=== PATIENT | female | born 1960 | race Caucasian/White ===

== ENCOUNTER → 2020-05-02 15:25 | Outpatient (CLI) | payer BC, SELFPAY ==
[2020-05-02 16:02] LABS: COVID19 -Nasal RAPID Negative (Negative)
== END ==
PROVIDERS: Visit Provider Physician Assistant
DX: Z11.59 Encounter for screening for other viral diseases (principal)
CPT/HCPCS: 87635

== ENCOUNTER → 2020-06-23 10:54 | Outpatient (CLI) | payer BC, SELFPAY ==
[2020-06-23] MEDS: COVID-19 VACC #1, MRNA(MOD) 100 MCG/0.5 ML VIAL IM (10:59)
== END ==
PROVIDERS: Visit Provider Internal Medicine
DX: Z23 Encounter for immunization (principal)
CPT/HCPCS: 0011A; 91301

== ENCOUNTER 2020-06-27 11:04 | Emergency (ER) | payer BC, SELFPAY ==
[2020-06-27 11:22] VITALS: BP 138/73; PULSE 114; RESP 22; TEMP 37; O2SAT 99; BMI 26.3
--- NOTE | 2020-06-27 11:29 | DI.RAD.S_ITS ---
PROCEDURE: XR CHEST 1V INDICATIONS: chest pain TECHNIQUE: One view of the chest was acquired. COMPARISON: None. FINDINGS: Surgical changes and devices: None. Lungs and pleura: Lungs are clear. No pleural effusions or pneumothorax. Mediastinum: Mediastinal contours appear normal. Heart size is normal. Bones and chest wall: No suspicious bony lesions. Overlying soft tissues appear unremarkable. IMPRESSION: No acute disease. Dictated by: Justo Rodríguez M.D. on 06/27/2020 at 12:11 Approved by: Justo Rodríguez M.D. on 06/27/2020 at 12:12
--- NOTE | 2020-06-27 11:50 | ED_ITS ---
HPI - Abdominal Pain <DEVIKA Horn - Last Filed: 06/27/20 15:39> General Chief Complaint: Abdominal Pain Stated Complaint: abd pain Time Seen by Provider: 06/27/20 11:38 Source: patient Mode of arrival: Ambulatory Limitations: no limitations History of Present Illness HPI narrative: The patient is a 60-year-old female current everyday smoker with history of ovarian CA who presents with a chief complaint of epigastric pain for approximately 1.5 years. She states it got worse over this weekend, radiating up to her chest. She complains of nausea, using Zofran frequently at home. She has also tried ?the purple pill for acid reflex as well as a GI cocktail. She states that she has had some floating stools recently, and headache above her eyes which makes her concerned about her gallbladder. She states her nausea is becoming increasingly persistent. No vomiting. Denies any black tarry stools. Denies any dysuria urgency or frequency. She states that she was using lots of ibuprofen for her pain, related to a rotator cuff injury as well as a foot injury. Related Data Home Medications Medication Instructions Recorded Confirmed duloxetine 60 mg capsule,delayed 60 mg PO DAILY 05/02/20 05/02/20 release lorazepam 0.5 mg tablet 0.5 mg PO DAILY PRN 05/02/20 05/02/20 methadone PO 05/02/20 05/02/20 methadone 15 mg PO DAILY 06/27/20 06/27/20 Previous Rx's Medication Instructions Recorded sucralfate [Carafate] 10 ml PO QACHS #420 ml 06/27/20 Allergies Allergy/AdvReac Type Severity Reaction Status Date / Time Penicillins Allergy Intermediate Rash Verified 06/27/20 11:29 Sulfa (Sulfonamide Allergy Intermediate Rash Verified 06/27/20 11:29 Antibiotics) Review of Systems <DEVIKA Horn - Last Filed: 06/27/20 15:39> Review of Systems Narrative: GENERAL: Denies chills, fatigue, malaise, fever, sweats. HEENT: Denies sinus pain, ear pain, sore throat, difficulty swallowing, dizziness. RESPIRATORY: Denies dyspnea, cough, wheezing, hemoptysis, sputum. CARDIOVASCULAR: See HPI GASTROINTESTINAL: See HPI : Denies dysuria, frequency, incontinence, hematuria, urinary retention. MUSCULOSKELETAL: denies weakness, joint pain, or bony pain SKIN: Denies rash, skin lesions, or other NEUROLOGIC: Denies weakness, headache, numbness, change in speech, confusion, seizures, incoordination. PSYCHIATRIC: No concerning psychosocial issues. 12 point review of systems is negative except for those stated above Patient History <DEVIKA Horn - Last Filed: 06/27/20 15:39> Medical History (Updated 06/27/20 @ 15:35 by DEVIKA Horn) URI (upper respiratory infection) Social History Smoking Status: Current every day smoker Smoking Status: Current every day smoker alcohol intake frequency: 0-2 drinks per day Substance Use Type: does not use Exam <DEVIKA Horn - Last Filed: 06/27/20 15:39> Narrative Exam Narrative: GENERAL: This is a well-nourished, well-developed patient, in no acute distress lying on stretcher HEAD: Atraumatic. Normocephalic. No temporal or scalp tenderness. EYES: Pupils equal round and reactive. Extraocular motions intact. No scleral icterus. No injection or drainage. ENT: Nose without bleeding, purulent drainage or septal hematoma. Throat without erythema, tonsillar hypertrophy or exudate. Uvula midline. Airway patent. NECK: Trachea midline. No JVD or lymphadenopathy. Supple, nontender, no meningeal signs. CARDIOVASCULAR: Regular rate and rhythm RESPIRATORY: Clear to auscultation. Breath sounds equal bilaterally. No wheezes, rales, or rhonchi. GASTROINTESTINAL: Abdomen soft, diffusely tender right upper quadrant, diffusely tender epigastric area, nondistended. No hepato-splenomegaly, or palpable masses. No guarding. Active bowel sounds all 4 quadrants. Negative [place]herty sig n. EXTREMITIES: No clubbing, cyanosis, or edema. No joint tenderness, effusion, or edema noted. BACK: Nontender without deformity or crepitance. No flank tenderness. NEURO: AOx3. SKIN: No rash or erythema on visible skin Initial Vital Signs Initial Vital Signs: Vital Signs Temperature 98.6 F 06/27/20 11:22 Pulse Rate 114 H 06/27/20 11:22 Respiratory Rate 22 06/27/20 11:22 Blood Pressure 138/73 06/27/20 11:22 Pulse Oximetry 99 06/27/20 11:22 <Dennis Luong DO - Last Filed: 06/27/20 17:19> Initial Vital Signs Initial Vital Signs: Vital Signs Temperature 98.6 F 06/27/20 11:22 Pulse Rate 114 H 06/27/20 11:22 Respiratory Rate 22 06/27/20 11:22 Blood Pressure 138/73 06/27/20 11:22 Pulse Oximetry 99 06/27/20 11:22 Scores <DEVIKA Horn - Last Filed: 06/27/20 15:39> GCS Mitra coma scale eye opening: Spontaneous Mitra coma scale verbal response: Orientated Mitra coma scale motor response: Obey commands Mitra coma scale total score: 15 Course <DEVIKA Horn - Last Filed: 06/27/20 15:39> Orders Ordered: ED Orders 06/27/20 11:29 XR chest 1V Stat EKG-12 Lead Stat 06/27/20 12:21 Complete Blood Count AUTO DIFF Stat Comprehensive Metabolic Panel Stat Lactate (Lactic Acid) Stat Lipase Stat Magnesium Stat Partial Thromboplastin Time Stat Procalcitonin Stat Prothrombin Time INR Stat Troponin & CK Cardiac Panel Stat 06/27/20 12:59 CT chest abd pel w con Stat 06/27/20 13:15 Urinalysis and Microscopic Stat Discontinued Medications Sodium Chloride (Normal Saline 0.9%) 1,000 mls @ 1,000 mls/hr IV BOLUS ONE Stop: 06/27/20 13:19 Last Infusion: 06/27/20 13:23 Dose: 0 mls/hr Documented by: Admin: 06/27/20 12:30 Dose: 1,000 mls/hr Documented by: JASON Magnesium Citrate (Magnesium Citrate 300 Ml Solution) 300 ml PO NOW ONE Stop: 06/27/20 14:34 Last Admin: 06/27/20 14:42 Dose: 300 ml Documented by: JASON Ondansetron HCl (Ondansetron 4 Mg/2 Ml Inj) 4 mg IV NOW ONE Stop: 06/27/20 13:20 Last Admin: 06/27/20 13:22 Dose: 4 mg Documented by: TRUDY Sucralfate (Sucralfate 1 Gm/10 Ml Oral Susp) 1 gm PO NOW ONE Stop: 06/27/20 14:33 Last Admin: 06/27/20 14:42 Dose: 1 gm Documented by: JASON Vital Signs Vital signs: Vital Signs - 8 hr 06/27/20 11:22 06/27/20 12:00 06/27/20 12:30 Temperature 98.6 F Pulse Rate 114 H 76 74 Respiratory Rate 22 Blood Pressure 138/73 115/59 L 111/57 L Pulse Oximetry 99 98 97 06/27/20 13:28 06/27/20 13:30 06/27/20 14:00 Temperature Pulse Rate 74 68 59 L Respiratory Rate 20 Blood Pressure 115/61 114/61 108/61 Pulse Oximetry 98 98 96 <Dennis Luong, - Last Filed: 06/27/20 17:19> Orders Ordered: ED Orders 06/27/20 11:29 XR chest 1V Stat EKG-12 Lead Stat 06/27/20 12:21 Complete Blood Count AUTO DIFF Stat Comprehensive Metabolic Panel Stat Lactate (Lactic Acid) Stat Lipase Stat Magnesium Stat Partial Thromboplastin Time Stat Procalcitonin Stat Prothrombin Time INR Stat Troponin & CK Cardiac Panel Stat 06/27/20 12:59 CT chest abd pel w con Stat 06/27/20 13:15 Urinalysis and Microscopic Stat Discontinued Medications Sodium Chloride (Normal Saline 0.9%) 1,000 mls @ 1,000 mls/hr IV BOLUS ONE Stop: 06/27/20 13:19 Last Infusion: 06/27/20 13:23 Dose: 0 mls/hr Documented by: Admin: 06/27/20 12:30 Dose: 1,000 mls/hr Documented by: JASON Magnesium Citrate (Magnesium Citrate 300 Ml Solution) 300 ml PO NOW ONE Stop: 06/27/20 14:34 Last Admin: 06/27/20 14:42 Dose: 300 ml Documented by: JASON Ondansetron HCl (Ondansetron 4 Mg/2 Ml Inj) 4 mg IV NOW ONE Stop: 06/27/20 13:20 Last Admin: 06/27/20 13:22 Dose: 4 mg Documented by: TRUDY Sucralfate (Sucralfate 1 Gm/10 Ml Oral Susp) 1 gm PO NOW ONE Stop: 06/27/20 14:33 Last Admin: 06/27/20 14:42 Dose: 1 gm Documented by: JASON Vital Signs Vital signs: Vital Signs - 8 hr 06/27/20 11:22 06/27/20 12:00 06/27/20 12:30 Temperature 98.6 F Pulse Rate 114 H 76 74 Respiratory Rate 22 Blood Pressure 138/73 115/59 L 111/57 L Pulse Oximetry 99 98 97 06/27/20 13:28 06/27/20 13:30 06/27/20 14:00 Temperature Pulse Rate 74 68 59 L Respiratory Rate 20 Blood Pressure 115/61 114/61 108/61 Pulse Oximetry 98 98 96 MDM - Abdominal Pain <Estelita Chan, MADHAVI-BC - Last Filed: 06/27/20 15:39> Lab Data Attestation: I reviewed the patient's lab results. Result diagrams: 06/27/20 12:21 06/27/20 12:21 Labs: Lab Results 06/27/20 06/27/20 06/27/20 Range/Units 12:21 12:21 12:21 WBC 5.6 (4.5-11.0) X10^3/uL RBC 4.48 (4.0-5.2) X10^6/uL Hgb 13.2 (12.0-16.0) g/dL Hct 39.7 (36-46) % MCV 88.7 (80-100) fL MCH 29.6 (26-34) PG MCHC 33.3 (30-36) % RDW 14.3 (11.6-14.8) % Plt Count 255 (150-400) X10^3/uL Neut % (Auto) 71.9 (50-75) % Lymph % (Auto) 17.2 L (25-40) % [place] % (Auto) 7.8 (3-14) % Eos % (Auto) 2.5 (2-4) % Baso % (Auto) 0.6 (0-2) % Neut # (Auto) 4100 (9884-4516) /uL Lymph # (Auto) 1000 L (6651-9632) /uL [place] # (Auto) 400 (0-900) /uL Eos # (Auto) 100 (0-450) /uL Baso # (Auto) 0 (0-100) /uL PT 11.1 (10.1-12.7) SECONDS INR 1.0 (0.9-1.3) APTT 37 H (26.4-36.2) SECONDS Sodium 140 (137-145) mmol/L Potassium 3.8 (3.4-5.1) mmol/L Chloride 105 (98-107) mmol/L Carbon Dioxide 32 (22-32) mmol/L BUN 14 (7-17) mg/dL Creatinine 0.79 (0.52-1.04) mg/dL Estimated GFR > 60.0 (>60) mL/min BUN/Creatinine Ratio 17.7 (6-22) Glucose 103 H (70-100) mg/dL Lactate (0.7-2.1) mmol/L Calcium 8.9 (8.4-10.2) mg/dL Magnesium 2.2 (1.6-2.3) mg/dL Total Bilirubin 0.1 L (0.2-1.3) mg/dL AST 32 (14-36) IU/L ALT 25 (<35) IU/L Alkaline Phosphatase 64 (38-126) U/L Total Creatine Kinase 56 (30-135) U/L CK-MB (CK-2) TNP CK-MB (CK-2) Rel Index TNP Troponin I < 0.012 (0.01-0.034) ng/mL Total Protein 6.9 (6.3-8.2) g/dL Albumin 4.1 (3.5-5.0) g/dL Globulin 2.8 (1.7-4.1) g/dL Albumin/Globulin Ratio 1.5 (1.0-2.8) Lipase 55 (23-300) U/L Procalcitonin (<0.5) ng/mL Urine Color Urine Appearance Urine pH (4.5-8.0) Ur Specific [place] (1.000-1.035) Urine Protein (Negative) Urine Glucose (UA) (Negative) g/dL Urine Ketones (NEGATIVE) Urine Occult Blood (Negative) Urine Nitrate (Negative) Urine Bilirubin (NEGATIVE) Urine Urobilinogen (0.2) E.U./dL Ur Leukocyte Esterase (NEGATIVE) Urine RBC (0-5/HPF) Urine WBC (0-5/HPF) Urine Bacteria (None) Ur Culture Indicated? 06/27/20 06/27/20 06/27/20 Range/Units 12:21 12:21 12:21 WBC (4.5-11.0) X10^3/uL RBC (4.0-5.2) X10^6/uL Hgb (12.0-16.0) g/dL Hct (36-46) % MCV (80-100) fL MCH (26-34) PG MCHC (30-36) % RDW (11.6-14.8) % Plt Count (150-400) X10^3/uL Neut % (Auto) (50-75) % Lymph % (Auto) (25-40) % [place] % (Auto) (3-14) % Eos % (Auto) (2-4) % Baso % (Auto) (0-2) % Neut # (Auto) (4284-3533) /uL Lymph # (Auto) (5561-4762) /uL [place] # (Auto) (0-900) /uL Eos # (Auto) (0-450) /uL Baso # (Auto) (0-100) /uL PT (10.1-12.7) SECONDS INR (0.9-1.3) APTT (26.4-36.2) SECONDS Sodium (137-145) mmol/L Potassium (3.4-5.1) mmol/L Chloride (98-107) mmol/L Carbon Dioxide (22-32) mmol/L BUN (7-17) mg/dL Creatinine (0.52-1.04) mg/dL Estimated GFR (>60) mL/min BUN/Creatinine Ratio (6-22) Glucose (70-100) mg/dL Lactate 1.0 (0.7-2.1) mmol/L Calcium (8.4-10.2) mg/dL Magnesium Cancelled (1.6-2.3) mg/dL Total Bilirubin (0.2-1.3) mg/dL AST (14-36) IU/L ALT (<35) IU/L Alkaline Phosphatase (38-126) U/L Total Creatine Kinase (30-135) U/L CK-MB (CK-2) CK-MB (CK-2) Rel Index Troponin I (0.01-0.034) ng/mL Total Protein (6.3-8.2) g/dL Albumin (3.5-5.0) g/dL Globulin (1.7-4.1) g/dL Albumin/Globulin Ratio (1.0-2.8) Lipase (23-300) U/L Procalcitonin < 0.05 (<0.5) ng/mL Urine Color Urine Appearance Urine pH (4.5-8.0) Ur Specific [place] (1.000-1.035) Urine Protein (Negative) Urine Glucose (UA) (Negative) g/dL Urine Ketones (NEGATIVE) Urine Occult Blood (Negative) Urine Nitrate (Negative) Urine Bilirubin (NEGATIVE) Urine Urobilinogen (0.2) E.U./dL Ur Leukocyte Esterase (NEGATIVE) Urine RBC (0-5/HPF) Urine WBC (0-5/HPF) Urine Bacteria (None) Ur Culture Indicated? 06/27/20 Range/Units 13:15 WBC (4.5-11.0) X10^3/uL RBC (4.0-5.2) X10^6/uL Hgb (12.0-16.0) g/dL Hct (36-46) % MCV (80-100) fL MCH (26-34) PG MCHC (30-36) % RDW (11.6-14.8) % Plt Count (150-400) X10^3/uL Neut % (Auto) (50-75) % Lymph % (Auto) (25-40) % [place] % (Auto) (3-14) % Eos % (Auto) (2-4) % Baso % (Auto) (0-2) % Neut # (Auto) (3180-1626) /uL Lymph # (Auto) (9085-6755) /uL [place] # (Auto) (0-900) /uL Eos # (Auto) (0-450) /uL Baso # (Auto) (0-100) /uL PT (10.1-12.7) SECONDS INR (0.9-1.3) APTT (26.4-36.2) SECONDS Sodium (137-145) mmol/L Potassium (3.4-5.1) mmol/L Chloride (98-107) mmol/L Carbon Dioxide (22-32) mmol/L BUN (7-17) mg/dL Creatinine (0.52-1.04) mg/dL Estimated GFR (>60) mL/min BUN/Creatinine Ratio (6-22) Glucose (70-100) mg/dL Lactate (0.7-2.1) mmol/L Calcium (8.4-10.2) mg/dL Magnesium (1.6-2.3) mg/dL Total Bilirubin (0.2-1.3) mg/dL AST (14-36) IU/L ALT (<35) IU/L Alkaline Phosphatase (38-126) U/L Total Creatine Kinase (30-135) U/L CK-MB (CK-2) CK-MB (CK-2) Rel Index Troponin I (0.01-0.034) ng/mL Total Protein (6.3-8.2) g/dL Albumin (3.5-5.0) g/dL Globulin (1.7-4.1) g/dL Albumin/Globulin Ratio (1.0-2.8) Lipase (23-300) U/L Procalcitonin (<0.5) ng/mL Urine Color Yellow Urine Appearance Clear Urine pH 7.5 (4.5-8.0) Ur Specific [place] 1.015 (1.000-1.035) Urine Protein Negative (Negative) Urine Glucose (UA) Negative (Negative) g/dL Urine Ketones Negative (NEGATIVE) Urine Occult Blood Negative (Negative) Urine Nitrate Negative (Negative) Urine Bilirubin Negative (NEGATIVE) Urine Urobilinogen 0.2 (0.2) E.U./dL Ur Leukocyte Esterase Negative (NEGATIVE) Urine RBC 0-1/hpf (0-5/HPF) Urine WBC 0-1/hpf (0-5/HPF) Urine Bacteria Occasional (0-1) (None) Ur Culture Indicated? Cult not indicated Imaging Data CT scan - abdomen/pelvis: Radiologist's Impression: Yana Akins [place] 60 F [address] Scan ReportSigned Patient: Yana Akins [facility]#: [id number]: 2Acct:[id number]/Sex: 60 / FDate of Service: 06/27/20Loc: EDAccession Number: [id number] Procedure: CT chest abd pel w con Ordering Provider: Estelita Chan- PROCEDURE: CT CHEST ABD PEL W CON INDICATIONS: epigastric pain. hx ca TECHNIQUE: After the administration of intravenous contrast, 5 mm thick sections acquired from the lung apices to the symphysis. 5 mm coronal and sagittal reformats were performe d, with additional 7 mm MIP reformats through the lungs. For radiation dose reduction, the following was used: automated exposure control, adjustment of mA and/or kV according to patient size. COMPARISON: [facility], CR, XR CHEST 1V, 06/27/2020, 11:44. FINDINGS: Image quality: Excellent. CHEST: Lungs and pleura: There is a 4 mm nodule in the left lower lobe (series 4 image 270). No acute airspace opacities. No pleural effusions or pneumothorax. Central and peripheral airways appear patent and normal in caliber. Mediastinum: Heart size is normal. No pericardial effusion. No mediastinal or hilar adenopathy by size criteria. Thoracic aorta and central pulmonary arteries are normal in size. Esophagus is normal in caliber. No hiatal hernia. Chest wall: No axillary or supraclavicular adenopathy by size criteria. Thyroid gland is normal . ABDOMEN: Solid organs: Liver is normal in size and enhancement. Gallbladder is normal. Biliary system is non dilated. Pancreas enhances normally. Spleen is normal in size and enhancement. No adrenal nodules. Kidneys demonstrate normal size and enhancement, without hydronephrosis. Peritoneum and bowel: Gastric antral thickening is present. There is a large amount of stool in colon. Bowel loops demonstrate normal wall thickness and caliber. No free fluid or air. Nodes and vessels: No retroperitoneal or mesenteric adenopathy by size criteria. Aorta and inferior vena cava are normal in size. Miscellaneous: No ventral hernias. PELVIS: Genitourinary: There are surgical clips in the left pelvic sidewall. Uterus and ovaries are absent. No free fluid in pelvis. Bladder wall thickness is normal. Miscellaneous: No inguinal hernias or adenopathy. Small subcentimeter inguinal lymph nodes are most likely reactive. Bones: No suspicious bony lesions. No vertebral body compression fractures. IMPRESSION: 1. Gastric antral thickening. This finding may be secondary to peptic ulcer disease or gastritis. Recommend clinical correlation and follow-up. If clinically loretta cated, upper endoscopy may be obtained for further evaluation. 2. No findings to suggest recurrent or metastatic cancer. 3. A 4 mm indeterminate lung nodule in the left lower lobe. Recommend a follow- up CT in 3 months. 4. A large amount of stool in colon. Dictated by: Nicki Morel M.D. on 06/27/2020 at 13:55 Approved by: Nicki Morel M.D. 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 hx ca TECHNIQUE: After the administration of intravenous contrast, 5 mm thick sections acquired from the lung apices to the symphysis. 5 mm coronal and sagittal reformats were performed, with additional 7 mm MIP reformats through the lungs. For radiation dose reduction, the following was used: automated exposure control, adjustment of mA and/or kV according to patient size. COMPARISON: [facility], CR, XR CHEST 1V, 06/27/2020, 11:44. FINDINGS: Image quality: Excellent. CHEST: Lungs and pleura: There is a 4 mm nodule in the left lower lobe (series 4 image 270). No acute airspace opacities. No pleural effusions or pneumothorax. Central and peripheral airways appear patent and normal in caliber. Mediastinum: Heart size is normal. No pericardial effusion. No mediastinal or hilar adenopathy by size criteria. Thoracic aorta and central pulmonary arteries are normal in size. Esophagus is normal in caliber. No hiatal hernia. Chest wall: No axillary or supraclavicular adenopathy by size criteria. Thyroid gland is normal . ABDOMEN: Solid organs: Liver is normal in size and enhancement. Gallbladder is normal. Biliary system is non dilated. Pancreas enhances normally. Spleen is normal in size and enhancement. No adrenal nodules. Kidneys demonstrate normal size and enhancement, without hydronephrosis. Peritoneum and bowel: Gastric antral thickening is present. There is a large amount of stool in colon. Bowel loops demonstrate normal wall thickness and caliber. No free fluid or air. Nodes and vessels: No retroperitoneal or mesenteric adenopathy by size criteria. Aorta and inferior vena cava are normal in size. Miscellaneous: No ventral hernias. PELVIS: Genitourinary: There are surgical clips in the left pelvic sidewall. Uterus and ovaries are absent. No free fluid in pelvis. Bladder wall thickness is normal. Miscellaneous: No inguinal hernias or adenopathy. Small subcentimeter inguinal lymph nodes are most likely reactive. Bones: No suspicious bony lesions. No vertebral body compression fractures. IMPRESSION: 1. Gastric antral thickening. This finding may be secondary to peptic ulcer disease or gastritis. Recommend clinical correlation and follow-up. If clinically indicated, upper endoscopy may be obtained for further evaluation. 2. No findings to suggest recurrent or metastatic cancer. 3. A 4 mm indeterminate lung nodule in the left lower lobe. Recommend a follow-up CT in 3 months. 4. A large amount of stool in colon. Dictated by: Nicki Morel M.D. on 06/27/2020 at 13:55 Approved by: Nicki Morel M.D. on 06/27/2020 at 14:03 ECG Data Attestation: I personally reviewed and interpreted this ECG as follows: Interpretation: Sinus rhythm. Ventricular rate 80. P.r. interval 138. QRS 86. viewed by Dr Cherise NIELSON Narrative Medical decision making narrative: The patient is a 60-year-old female who presents with a chief complaint of recent worsening of a urine half of epigastric pain. She does have a history concerning for ovarian CA. The given her history, I did obtain lab work which showed no leukocytosis, normal lactate as well as a CT scan which shows no evidence of metastatic disease. However her story and exam is concerning for gastritis or peptic ulcer disease, especially given that is worse with stress. She appears hemodynamically stable, is able to tolerate p.o. fluids and feels much improved after Carafate. Her CT does show significant constipation so she was discharged with magnesium citrate. Also found an incidental pulmonary nodule, discussed the importance of follow-up with primary care provider regarding us for further evaluation. The did offer to do a Hemoccult to evaluate for GI bleeding, but the patient declines today. She states she is not particularly concerned about that. Encouraged to follow up with primary care provider, follow a low acid diet and come back to the emergency department for any acute concerns such as inability keep down fluids abdominal pain with fever etcetera. Patient has no questions or concerns upon discharge and states understanding of return precautions or follow-up care. <Dennis Luong, - Last Filed: 06/27/20 17:19> Lab Data Labs: Lab Results 06/27/20 06/27/20 06/27/20 Range/Units 12:21 12:21 12:21 WBC 5.6 (4.5-11.0) X10^3/uL RBC 4.48 (4.0-5.2) X10^6/uL Hgb 13.2 (12.0-16.0) g/dL Hct 39.7 (36-46) % MCV 88.7 (80-100) fL MCH 29.6 (26-34) PG MCHC 33.3 (30-36) % RDW 14.3 (11.6-14.8) % Plt Count 255 (150-400) X10^3/uL Neut % (Auto) 71.9 (50-75) % Lymph % (Auto) 17.2 L (25-40) % [place] % (Auto) 7.8 (3-14) % Eos % (Auto) 2.5 (2-4) % Baso % (Auto) 0.6 (0-2) % Neut # (Auto) 4100 (6080-6557) /uL Lymph # (Auto) 1000 L (0459-8180) /uL [place] # (Auto) 400 (0-900) /uL Eos # (Auto) 100 (0-450) /uL Baso # (Auto) 0 (0-100) /uL PT 11.1 (10.1-12.7) SECONDS INR 1.0 (0.9-1.3) APTT 37 H (26.4-36.2) SECONDS Sodium 140 (137-145) mmol/L Potassium 3.8 (3.4-5.1) mmol/L Chloride 105 (98-107) mmol/L Carbon Dioxide 32 (22-32) mmol/L BUN 14 (7-17) mg/dL Creatinine 0.79 (0.52-1.04) mg/dL Estimated GFR > 60.0 (>60) mL/min BUN/Creatinine Ratio 17.7 (6-22) Glucose 103 H (70-100) mg/dL Lactate (0.7-2.1) mmol/L Calcium 8.9 (8.4-10.2) mg/dL Magnesium 2.2 (1.6-2.3) mg/dL Total Bilirubin 0.1 L (0.2-1.3) mg/dL AST 32 (14-36) IU/L ALT 25 (<35) IU/L Alkaline Phosphatase 64 (38-126) U/L Total Creatine Kinase 56 (30-135) U/L CK-MB (CK-2) TNP CK-MB (CK-2) Rel Index TNP Troponin I < 0.012 (0.01-0.034) ng/mL Total Protein 6.9 (6.3-8.2) g/dL Albumin 4.1 (3.5-5.0) g/dL Globulin 2.8 (1.7-4.1) g/dL Albumin/Globulin Ratio 1.5 (1.0-2.8) Lipase 55 (23-300) U/L Procalcitonin (<0.5) ng/mL Urine Color Urine Appearance Urine pH (4.5-8.0) Ur Specific [place] (1.000-1.035) Urine Protein (Negative) Urine Glucose (UA) (Negative) g/dL Urine Ketones (NEGATIVE) Urine Occult Blood (Negative) Urine Nitrate (Negative) Urine Bilirubin (NEGATIVE) Urine Urobilinogen (0.2) E.U./dL Ur Leukocyte Esterase (NEGATIVE) Urine RBC (0-5/HPF) Urine WBC (0-5/HPF) Urine Bacteria (None) Ur Culture Indicated? 06/27/20 06/27/20 06/27/20 Range/Units 12:21 12:21 12:21 WBC (4.5-11.0) X10^3/uL RBC (4.0-5.2) X10^6/uL Hgb (12.0-16.0) g/dL Hct (36-46) % MCV (80-100) fL MCH (26-34) PG MCHC (30-36) % RDW (11.6-14.8) % Plt Count (150-400) X10^3/uL Neut % (Auto) (50-75) % Lymph % (Auto) (25-40) % [place] % (Auto) (3-14) % Eos % (Auto) (2-4) % Baso % (Auto) (0-2) % Neut # (Auto) (5783-7369) /uL Lymph # (Auto) (6653-2107) /uL [place] # (Auto) (0-900) /uL Eos # (Auto) (0-450) /uL Baso # (Auto) (0-100) /uL PT (10.1-12.7) SECONDS INR (0.9-1.3) APTT (26.4-36.2) SECONDS Sodium (137-145) mmol/L Potassium (3.4-5.1) mmol/L Chloride (98-107) mmol/L Carbon Dioxide (22-32) mmol/L BUN (7-17) mg/dL Creatinine (0.52-1.04) mg/dL Estimated GFR (>60) mL/min BUN/Creatinine Ratio (6-22) Glucose (70-100) mg/dL Lactate 1.0 (0.7-2.1) mmol/L Calcium (8.4-10.2) mg/dL Magnesium Cancelled (1.6-2.3) mg/dL Total Bilirubin (0.2-1.3) mg/dL AST (14-36) IU/L ALT (<35) IU/L Alkaline Phosphatase (38-126) U/L Total Creatine Kinase (30-135) U/L CK-MB (CK-2) CK-MB (CK-2) Rel Index Troponin I (0.01-0.034) ng/mL Total Protein (6.3-8.2) g/dL Albumin (3.5-5.0) g/dL Globulin (1.7-4.1) g/dL Albumin/Globulin Ratio (1.0-2.8) Lipase (23-300) U/L Procalcitonin < 0.05 (<0.5) ng/mL Urine Color Urine Appearance Urine pH (4.5-8.0) Ur Specific [place] (1.000-1.035) Urine Protein (Negative) Urine Glucose (UA) (Negative) g/dL Urine Ketones (NEGATIVE) Urine Occult Blood (Negative) Urine Nitrate (Negative) Urine Bilirubin (NEGATIVE) Urine Urobilinogen (0.2) E.U./dL Ur Leukocyte Esterase (NEGATIVE) Urine RBC (0-5/HPF) Urine WBC (0-5/HPF) Urine Bacteria (None) Ur Culture Indicated? 06/27/20 Range/Units 13:15 WBC (4.5-11.0) X10^3/uL RBC (4.0-5.2) X10^6/uL Hgb (12.0-16.0) g/dL Hct (36-46) % MCV (80-100) fL MCH (26-34) PG MCHC (30-36) % RDW (11.6-14.8) % Plt Count (150-400) X10^3/uL Neut % (Auto) (50-75) % Lymph % (Auto) (25-40) % [place] % (Auto) (3-14) % Eos % (Auto) (2-4) % Baso % (Auto) (0-2) % Neut # (Auto) (8193-1741) /uL Lymph # (Auto) (2647-7413) /uL [place] # (Auto) (0-900) /uL Eos # (Auto) (0-450) /uL Baso # (Auto) (0-100) /uL PT (10.1-12.7) SECONDS INR (0.9-1.3) APTT (26.4-36.2) SECONDS Sodium (137-145) mmol/L Potassium (3.4-5.1) mmol/L Chloride (98-107) mmol/L Carbon Dioxide (22-32) mmol/L BUN (7-17) mg/dL Creatinine (0.52-1.04) mg/dL Estimated GFR (>60) mL/min BUN/Creatinine Ratio (6-22) Glucose (70-100) mg/dL Lactate (0.7-2.1) mmol/L Calcium (8.4-10.2) mg/dL Magnesium (1.6-2.3) mg/dL Total Bilirubin (0.2-1.3) mg/dL AST (14-36) IU/L ALT (<35) IU/L Alkaline Phosphatase (38-126) U/L Total Creatine Kinase (30-135) U/L CK-MB (CK-2) CK-MB (CK-2) Rel Index Troponin I (0.01-0.034) ng/mL Total Protein (6.3-8.2) g/dL Albumin (3.5-5.0) g/dL Globulin (1.7-4.1) g/dL Albumin/Globulin Ratio (1.0-2.8) Lipase (23-300) U/L Procalcitonin (<0.5) ng/mL Urine Color Yellow Urine Appearance Clear Urine pH 7.5 (4.5-8.0) Ur Specific [place] 1.015 (1.000-1.035) Urine Protein Negative (Negative) Urine Glucose (UA) Negative (Negative) g/dL Urine Ketones Negative (NEGATIVE) Urine Occult Blood Negative (Negative) Urine Nitrate Negative (Negative) Urine Bilirubin Negative (NEGATIVE) Urine Urobilinogen 0.2 (0.2) E.U./dL Ur Leukocyte Esterase Negative (NEGATIVE) Urine RBC 0-1/hpf (0-5/HPF) Urine WBC 0-1/hpf (0-5/HPF) Urine Bacteria Occasional (0-1) (None) Ur Culture Indicated? Cult not indicated Discharge Plan Departure Patient Disposition: Home Clinical Impression: Incidental pulmonary nodule Abdominal pain Qualifiers: Abdominal location: epigastric Qualified Code(s): R10.13 - Epigastric pain Constipation Qualifiers: Constipation type: unspecified constipation type Qualified Code(s): K59.00 - Constipation, unspecified Instructions: Constipation (Alternative Therapy), DI for Gastroesophageal Reflux Disease (GERD), DI for Gastritis, DI for Abdominal Pain-Adult, DI for Constipation, DI for Pulmonary Nodule Activity Restrictions/Additional Instructions: Thank you for trusting us with your care today. As discussed, your abdominal CT does not show any gallbladder etiology. It does show some significant constipation. We have given you magnesium citrate to take at home to help fix this. You can help prevent severe constipation by staying hydrated, using [id number]-[id number] stool softeners as needed and able, using laxatives such as sign or smooth move tea when needed or able. We did find incidental pulmonary nodule, this would need follow-up with primary care provider for further monitoring. We have elected to treat you with Carafate, as your exam and imaging is concerning for gastritis. Please be sure to eat a low acid diet, avoid tomato, citrus, acidic foods, coffee, fried foods etcetera. Please eat a simple bland diet. As discussed, please come back to the emergency department for any acute concerns such as abdominal pain with fever, inability keep down fluids etcetera Please follow-up with primary care provider in the next few days. I have given you contact information to the [facility] forest resources professor, who can help you identify a PCP. Prescriptions: New sucralfate [Carafate] 100 mg/mL suspension 10 ml PO QACHS Qty: 420 RF: 0 No Action duloxetine [Cymbalta] 60 mg capsule,delayed release(DR/EC) 60 mg PO DAILY RF: 0 methadone PO RF: 0 lorazepam 0.5 mg tablet 0.5 mg PO DAILY PRNRF: 0 methadone 5 mg Tablet 15 mg PO DAILY RF: 0 Referrals: [facility] [Outside] <Dennis Luong, DO - Last Filed: 06/27/20 17:19> Cosign ED Attending Cosmichaelature Attestation: Dr Luong Co-Sign Statement: I was available for consultation during this patient's emergency department visit. This chart is signed by myself for administrative purposes only. I did not have direct contact with this patient during this visit. They were seen independently by the APC.
[2020-06-27 12:00] VITALS: BP 115/59; PULSE 76; O2SAT 98
[2020-06-27 12:30] VITALS: BP 111/57; PULSE 74; O2SAT 97
[2020-06-27] MEDS: SODIUM CHLORIDE 0.9% 1,000 ML 1000 ML IV (12:30)
[2020-06-27 12:35] LABS: Prothrombin Time 11.1 SECONDS (10.1-12.7)
[2020-06-27 12:38] LABS: PTT Partial Thromboplastin Tim 37 SECONDS (26.4-36.2)
[2020-06-27 12:39] LABS: Add Manual Diff / Slide Review NO; Basophils Absolute Auto 0 /uL (0-100); Basophils Percent Auto 0.6 % (0-2); Eosinophils Absolute Auto 100 /uL (0-450); Eosinophils Percent Auto 2.5 % (2-4); Hematocrit 39.7 % (36-46); Hemoglobin 13.2 g/dL (12.0-16.0); Lymphocytes Absolute Auto 1000 /uL (1100-4500); Lymphocytes Percent Auto 17.2 % (25-40); Mean Corpuscular HGB Conc 33.3 % (30-36); Mean Corpuscular Hemoglobin 29.6 PG (26-34); Mean Corpuscular Volume 88.7 fL (80-100); Monocytes Absolute Auto 400 /uL (0-900); Monocytes Percent Auto 7.8 % (3-14); Neutrophils Absolute Auto 4100 /uL (1500-7000); Neutrophils Percent Auto 71.9 % (50-75); Platelet Count 255 X10^3/uL (150-400); Red Blood Cell Count 4.48 X10^6/uL (4.0-5.2); Red Cell Distribution Width 14.3 % (11.6-14.8); White Blood Cell Count 5.6 X10^3/uL (4.5-11.0)
[2020-06-27 12:46] LABS: Alanine Aminotransferase 25 IU/L (<35); Albumin 4.1 g/dL (3.5-5.0); Albumin Globulin Ratio 1.5 (1.0-2.8); Alkaline Phosphatase 64 U/L (38-126); Aspartate Aminotransferase 32 IU/L (14-36); BUN Creatinine Ratio 17.7 (6-22); Bilirubin Total 0.1 mg/dL (0.2-1.3); Blood Urea Nitrogen 14 mg/dL (7-17); Calcium 8.9 mg/dL (8.4-10.2); Carbon Dioxide 32 mmol/L (22-32); Chloride 105 mmol/L (98-107); Creatine Kinase 56 U/L (30-135); Estimated Glomerular Filt Rate > 60.0 mL/min (>60); Globulin 2.8 g/dL (1.7-4.1); Glucose 103 mg/dL (70-100); HEMOLYSIS 15 (0-50); Lipase 55 U/L (23-300); Magnesium 2.2 mg/dL (1.6-2.3); Potassium 3.8 mmol/L (3.4-5.1); Sodium 140 mmol/L (137-145); Total Protein 6.9 g/dL (6.3-8.2)
[2020-06-27 12:56] LABS: Troponin I < 0.012 ng/mL (0.01-0.034)
[2020-06-27 12:57] LABS: Procalcitonin < 0.05 ng/mL (<0.5)
--- NOTE | 2020-06-27 12:59 | DI.CT.S_ITS ---
PROCEDURE: CT CHEST ABD PEL W CON INDICATIONS: epigastric pain. hx ca TECHNIQUE: After the administration of intravenous contrast, 5 mm thick sections acquired from the lung apices to the symphysis. 5 mm coronal and sagittal reformats were performed, with additional 7 mm MIP reformats through the lungs. For radiation dose reduction, the following was used: automated exposure control, adjustment of mA and/or kV according to patient size. COMPARISON: [facility], CR, XR CHEST 1V, 06/27/2020, 11:44. FINDINGS: Image quality: Excellent. CHEST: Lungs and pleura: There is a 4 mm nodule in the left lower lobe (series 4 image 270). No acute airspace opacities. No pleural effusions or pneumothorax. Central and peripheral airways appear patent and normal in caliber. Mediastinum: Heart size is normal. No pericardial effusion. No mediastinal or hilar adenopathy by size criteria. Thoracic aorta and central pulmonary arteries are normal in size. Esophagus is normal in caliber. No hiatal hernia. Chest wall: No axillary or supraclavicular adenopathy by size criteria. Thyroid gland is normal . ABDOMEN: Solid organs: Liver is normal in size and enhancement. Gallbladder is normal. Biliary system is non dilated. Pancreas enhances normally. Spleen is normal in size and enhancement. No adrenal nodules. Kidneys demonstrate normal size and enhancement, without hydronephrosis. Peritoneum and bowel: Gastric antral thickening is present. There is a large amount of stool in colon. Bowel loops demonstrate normal wall thickness and caliber. No free fluid or air. Nodes and vessels: No retroperitoneal or mesenteric adenopathy by size criteria. Aorta and inferior vena cava are normal in size. Miscellaneous: No ventral hernias. PELVIS: Genitourinary: There are surgical clips in the left pelvic sidewall. Uterus and ovaries are absent. No free fluid in pelvis. Bladder wall thickness is normal. Miscellaneous: No inguinal hernias or adenopathy. Small subcentimeter inguinal lymph nodes are most likely reactive. Bones: No suspicious bony lesions. No vertebral body compression fractures. IMPRESSION: 1. Gastric antral thickening. This finding may be secondary to peptic ulcer disease or gastritis. Recommend clinical correlation and follow-up. If clinically indicated, upper endoscopy may be obtained for further evaluation. 2. No findings to suggest recurrent or metastatic cancer. 3. A 4 mm indeterminate lung nodule in the left lower lobe. Recommend a follow-up CT in 3 months. 4. A large amount of stool in colon. Dictated by: Nicki Morel M.D. on 06/27/2020 at 13:55 Approved by: Nicki Morel M.D. on 06/27/2020 at 14:03
[2020-06-27 13:21] LABS: Appearance Urine UA CLEAR; Bilirubin Urine UA NEGATIVE (NEGATIVE); Color Urine UA YELLOW; Glucose Urine UA NEGATIVE (Negative); Ketones Urine UA NEGATIVE (NEGATIVE); Leukocyte Esterase Urine UA NEGATIVE (NEGATIVE); Nitrite Urine UA NEGATIVE (Negative); Occult Blood Urine UA NEGATIVE (Negative); Protein Urine UA NEGATIVE (Negative); Specific Gravity Urine UA 1.015 (1.000-1.035); Urobilinogen Urine UA 0.2 E.U./dL (0.2)
[2020-06-27] MEDS: ONDANSETRON 4 MG/2 ML INJ IV (13:22)
[2020-06-27 13:24] LABS: pH Urine UA 7.5 (4.5-8.0)
[2020-06-27 13:28] VITALS: BP 115/61; PULSE 74; O2SAT 98
[2020-06-27 13:28] LABS: Bacteria Urine Occasional (0-1); Culture Indicated Urine Cult Not Indicated; RBC Urine 0-1/HPF (0-5/HPF); WBC Urine 0-1/HPF (0-5/HPF)
[2020-06-27 13:30] VITALS: BP 114/61; PULSE 68; RESP 20; O2SAT 98
[2020-06-27 14:00] VITALS: BP 108/61; PULSE 59; O2SAT 96
[2020-06-27] MEDS: SUCRALFATE 1 GM/10 ML ORAL SUSP PO (14:42)
[2020-06-27] MEDS: MAGNESIUM CITRATE 300 ML SOLUTION PO (14:42)
== END 2020-06-27 16:00 | disposition home or self-care (01) ==
PROVIDERS: Emergency Medicine; Emergency Provider Nurse Practitioner Family
DX: R10.13 Epigastric pain (principal); R91.1 Solitary pulmonary nodule; R51.9 Headache, unspecified; K59.00 Constipation, unspecified; R11.0 Nausea
CPT/HCPCS: 36415; 71045; 71260; 74177; 80053; 81001; 82550; 83605; 83690; 83735; 84145; 84484; 85025; 85610; 85730; 93005; 96361; 96374; 99284; J2405

== ENCOUNTER → 2020-07-21 11:04 | Outpatient (CLI) | payer BC, SELFPAY ==
[2020-07-21] MEDS: COVID-19 VACC #2, MRNA(MOD) 100 MCG/0.5 ML VIAL IM (11:09)
== END ==
PROVIDERS: Visit Provider Internal Medicine
DX: Z23 Encounter for immunization (principal)
CPT/HCPCS: 0012A; 91301

== ENCOUNTER 2020-09-11 18:07 | Emergency (ER) | payer BC, SELFPAY ==
[2020-09-11 18:10] VITALS: PULSE 85; RESP 18; TEMP 36.9; O2SAT 99; BMI 27.2
--- NOTE | 2020-09-11 18:22 | ED.SKABFB ---
HPI - Skin/Abscess/Foreign Bdy General Chief complaint: Skin/Abscess/Foreign Body Stated complaint: left hand swelling, thinks infected Time Seen by Provider: 09/11/20 18:10 Source: patient Mode of arrival: Ambulatory Limitations: no limitations History of Present Illness HPI narrative: 60-year-old female daily smoker with remote history of cancer and immunocompromise (although not for 15-20 years) presents with a chief complaint slowly worsening left hand pain, redness and swelling. She noticed it after gardening a few days ago and has a few pokes in the dorsum of her hand from [place] bushes. She denies fever or chills. She denies any traumatic injury. She has no systemic findings such as fever, chills nor nausea or vomiting. She is not immunocompromised for any reason. The discomfort is only on the dorsum of her left hand at this point. MD complaint: rash Related Data Home Medications Medication Instructions Recorded Confirmed duloxetine 60 mg capsule,delayed 60 mg PO DAILY 05/02/20 05/02/20 release lorazepam 0.5 mg tablet 0.5 mg PO DAILY PRN 05/02/20 05/02/20 methadone PO 05/02/20 05/02/20 methadone 15 mg PO DAILY 06/27/20 06/27/20 Previous Rx's Medication Instructions Recorded sucralfate [Carafate] 10 ml PO QACHS #420 ml 06/27/20 doxycycline hyclate 100 mg PO BID #20 tab 09/11/20 Allergies Allergy/AdvReac Type Severity Reaction Status Date / Time Penicillins Allergy Intermediate Rash Verified 06/27/20 11:29 Sulfa (Sulfonamide Allergy Intermediate Rash Verified 06/27/20 11:29 Antibiotics) Review of Systems Constitutional Constitutional: Denies chills, Denies fatigue, Denies fever(s), Denies frequent falls, Denies lethargy and Denies weakness Eyes Eyes: Denies change in vision, Denies eye discharge, Denies irritation and Denies loss of vision ENT Ears, Nose, Mouth, and Throat: Denies change in voice, Denies dizziness, Denies neck pain, Denies sore throat and Denies throat swelling Cardiovascular Cardiovascular: Denies chest pain, Denies irregular heart rhythm, Denies lightheadedness, Denies palpitations, Denies dyspnea, Denies dyspnea on exertion and Denies orthopnea Respiratory Respiratory: Denies cough, Denies dyspnea, Denies dyspnea on exertion and Denies wheezing Gastrointestinal Gastrointestinal: Denies abdominal pain, Denies change in bowel habits, Denies diarrhea, Denies nausea and Denies vomiting Musculoskeletal Musculoskeletal: Denies neck pain and Denies numbness Integumentary/Breasts Skin/Breast: Denies pruritus, Reports erythema, Denies rash, Reports skin pain, Reports skin swelling and Denies wounds Neurologic Neurologic: Denies behavioral changes, Denies confusion, Denies dizziness, Denies frequent falls, Denies loss of vision, Denies numbness and Denies weakness Psychiatric Psychiatric: Denies anxiety, Denies behavioral changes, Denies confusion, Denies depression, Denies homicidal ideation and Denies suicidal ideation Endocrine Endocrine: Denies fatigue, Denies flushing and Denies palpitations Hematologic/Lymphatic Hematologic/Lymphatic: Denies easy bruising Allergic/Immunologic Allergic/Immunologic: Denies urticaria, Denies throat swelling and Denies wheezing Patient History Medical History URI (upper respiratory infection) Social History Smoking Status: Current every day smoker Smoking Status: Current every day smoker alcohol intake frequency: 0-2 drinks per day Substance Use Type: does not use Exam Narrative Exam Narrative: GEN: AOx3 and in mild distress, GCS 15 EYES: Pupils are equal, round, and reactive to light and accommodation. Extraoccular muscles are intact bilaterally. There is no subconjunctival hemorrhage or exudate. CHEST: Lungs are clear to auscultation bilaterally and free of wheezes, rales, or rhonchi. Heart rate is regular rhythm, there are no murmurs, clicks, rubs, or gallops. There is no chest wall tenderness. ABD: Abdomen is soft and nontender. There is no guarding or rebound. Bowel sounds are normal in all 4 quadrants. There is no mass or organomegaly. EXT: Full painless ROM of all extremities with no loss of sensation or strength. SKIN: Skin on dorsum of left hand is erythematous and warm. There is no fluctuance, induration or obvious break in the skin. Patient able to make a fist, no involvement of fingers or palmar surface. No lymphangitis Initial Vital Signs Initial Vital Signs: Vital Signs Temperature 98.5 F 09/11/20 18:10 Pulse Rate 85 09/11/20 18:10 Respiratory Rate 18 09/11/20 18:10 Pulse Oximetry 99 09/11/20 18:10 Course Orders Ordered: Discontinued Medications Doxycycline Hyclate (Doxycycline Hyclate 100 Mg Tablet) 100 mg PO NOW ONE Stop: 09/11/20 18:18 Last Admin: 09/11/20 18:27 Dose: 100 mg Documented by: RODRICK Vital Signs Vital signs: Vital Signs - 8 hr 09/11/20 18:10 Temperature 98.5 F Pulse Rate 85 Respiratory Rate 18 Pulse Oximetry 99 MDM - Skin/Abscess/Foreign Bdy MDM Narrative Medical decision making narrative: Multiple etiologies for patient's symptoms considered including: [Cellulitis versus thrombosis versus gout versus other] Patient shows no signs of surgical problem such as flexor tenosynovitis. No evidence of abscess. Patient is not septic Findings and discharge diagnosis discussed with patient/family followed by verbalization of understanding Return precautions discussed with patient/family whom verbalize understanding. Discharge Plan Departure Patient Disposition: Home Clinical Impression: Cellulitis Qualifiers: Site of cellulitis: extremity Site of cellulitis of extremity: upper extremity Laterality: left Qualified Code(s): L03.114 - Cellulitis of left upper limb Instructions: DI for Cellulitis -- Adult Activity Restrictions/Additional Instructions: *You have been diagnosed with [ left hand redness, pain , and swelling most likely due to early cellulitis] *What to do: *Take medications as directed: Prescription sent to [facility] at your request. As we discussed, the antibiotics which had increased risk for sunburn and GI upset. You can offset some of the GI upset by taking [id number]-[id number] probiotics *Follow up with your primary care provider in 2-3 days, call for an appointment. Let them know you were seen in the Emergency Department and that we ask that you be seen in follow up *Return to ER if you should have any new, worsening or concerning symptoms, such as [increasing pain, redness, swelling, fever, shaking chills or other bothersome symptoms] Prescriptions: New doxycycline hyclate 100 mg tablet 100 mg PO BID Qty: 20 RF: 0 No Action duloxetine [Cymbalta] 60 mg capsule,delayed release(DR/EC) 60 mg PO DAILY RF: 0 methadone PO RF: 0 lorazepam 0.5 mg tablet 0.5 mg PO DAILY PRNRF: 0 methadone 5 mg Tablet 15 mg PO DAILY RF: 0 sucralfate [Carafate] 100 mg/mL suspension 10 ml PO QACHS Qty: 420 RF: 0
[2020-09-11] MEDS: DOXYCYCLINE HYCLATE 100 MG TABLET PO (18:27)
== END 2020-09-11 18:34 | disposition home or self-care (01) ==
PROVIDERS: Emergency Provider Emergency Medicine
DX: L03.114 Cellulitis of left upper limb (principal)
CPT/HCPCS: 99283

== ENCOUNTER → 2021-04-07 13:21 | Outpatient (CLI) | payer BC, SELFPAY ==
[2021-04-07] MEDS: COVID-19 VACC #3, MRNA(MOD) 50 MCG/0.25 ML VIAL IM (13:25)
== END ==
PROVIDERS: Visit Provider Internal Medicine
DX: Z23 Encounter for immunization (principal)
CPT/HCPCS: 0013A; 91301

== ENCOUNTER → 2023-12-31 16:58 | Outpatient (CLI) | payer BC, SELFPAY ==
--- NOTE | 2023-12-31 17:02 | DI.RAD.S_ITS ---
PROCEDURE: XR WRIST LT MIN 3V INDICATIONS: WRIST PAIN TECHNIQUE: 4 views of the wrist were acquired. COMPARISON: None. FINDINGS: Bones: No fractures or dislocations. Mild left wrist joint osteoarthritic changes are seen. No suspicious bony lesions. Soft tissues: No suspicious soft tissue calcifications. IMPRESSION: No acute wrist fracture or dislocation. Mild left wrist joint osteoarthritis. Dictated by: Abiodun Paula M.D. on 12/31/2023 at 21:34 Approved by: Abiodun Paula M.D. on 12/31/2023 at 21:35
== END ==
PROVIDERS: PCP Registered Nurse; Referring Provider Registered Nurse; Visit Provider Registered Nurse
DX: M19.032 Primary osteoarthritis, left wrist (principal); M25.532 Pain in left wrist
CPT/HCPCS: 73110

== ENCOUNTER → 2024-07-07 | Outpatient (CLI) | payer BC, SELFPAY ==
--- NOTE | 2024-07-07 12:56 | DI.RAD.S_ITS ---
PROCEDURE: XR CHEST 2V INDICATIONS: Pneumonia TECHNIQUE: 2 views of the chest were acquired. COMPARISON: [facility], CR, XR CHEST 1V, 06/27/2020, 11:44. FINDINGS: Surgical changes and devices: None. Lungs and pleura: Lungs are clear. No pleural effusions or pneumothorax. Mediastinum: Mediastinal contours are normal. Heart size is normal. Bones and chest wall: No suspicious bony abnormalities. Soft tissues appear unremarkable. IMPRESSION: No acute cardiopulmonary pathology. Dictated by: Abiodun Paula M.D. on 07/07/2024 at 14:55 Approved by: Abiodun Paula M.D. on 07/07/2024 at 14:55
== END ==
PROVIDERS: PCP Registered Nurse; Referring Provider Registered Nurse; Visit Provider Registered Nurse
DX: J18.9 Pneumonia, unspecified organism (principal)
CPT/HCPCS: 71046

== ENCOUNTER → 2024-08-03 15:58 | Outpatient (CLI) | payer BC, SELFPAY ==
--- NOTE | 2024-08-03 16:01 | DI.RAD.S_ITS ---
PROCEDURE: XR CHEST 2V INDICATIONS: SORE THROAT TECHNIQUE: 2 views of the chest were acquired. COMPARISON: [facility], CR, XR CHEST 2V, 07/07/2024, 12:59. FINDINGS: Heart, mediastinum and pulmonary vascular: Heart is normal in size and configuration. Mediastinum is unremarkable. Pulmonary vascular is normal. Lungs: Clear Pleural spaces: Normal-no effusions or pneumothorax. Bones and soft tissues: Normal IMPRESSION: Normal chest. Dictated by: Azeem Reyes M.D. on 08/04/2024 at 9:49 Approved by: Azeme Reyes M.D. on 08/04/2024 at 9:50
== END ==
PROVIDERS: PCP Registered Nurse; Referring Provider Registered Nurse; Visit Provider Registered Nurse
DX: J02.9 Acute pharyngitis, unspecified (principal); J40 Bronchitis, not specified as acute or chronic; R50.9 Fever, unspecified; R05.1 Acute cough
CPT/HCPCS: 0241U; 71046

== ENCOUNTER → 2024-08-03 16:52 | Outpatient (ROUT) | payer BC, SELFPAY ==
[2024-08-03 17:37] LABS: COVID-19 CEPHEID 4-PLEX PCR Negative (Negative); Influenza A - CEPHEID Flu A NEGATIVE (NEGATIVE); Influenza B - CEPHEID Flu B NEGATIVE (NEGATIVE); Respiratory Syncytial Virus Negative (Negative)
== END ==
PROVIDERS: PCP Registered Nurse; Visit Provider Registered Nurse
DX: R05.1 Acute cough (principal); R50.9 Fever, unspecified
CPT/HCPCS: 0241U